=== PATIENT | male | born 1995 | race Caucasian/White ===

== ENCOUNTER 2017-02-14 10:20 | Emergency (ER) | payer OTHER, MEDICAID | END 2017-02-14 10:29 | disposition left against medical advice (07) | LOC: UCCORT 10:20 | DX: R11.2 Nausea with vomiting, unspecified (principal); R10.9 Unspecified abdominal pain; Z53.21 Procedure and treatment not carried out due to patient leaving prior to being seen by health care provider ==

== ENCOUNTER 2018-03-26 19:09 | Emergency (ER) | payer MEDICAID, OTHER ==
[2018-03-26 19:57] VITALS: BP 137/66
[2018-03-26] MEDS ORDERED: HYDROcodone/ACETAMIN 5-325 MG* 1 TAB PO ONE (20:11)
--- NOTE | 2018-03-26 20:12 | UC ---
[facility] HPI - HPI Summary HPI Summary: patient had his 3 bottom back right lower teeth removed on the 6th---Patient has continue pain that is not well managed with Advil. taking his Keflex as prescribed---no evidence of infection - History of Current Complaint Chief Complaint: UCGeneralIllness Stated Complaint: ORAL COMPLAINT Time Seen by Provider: 03/26/18 20:01 Hx Obtained From: Patient Onset/Duration: Gradual Onset, Lasting Days Pain Intensity: 7 Pain Scale Used: 0-10 Numeric Aggravating Factor(s): Nothing Alleviating Factor(s): Nothing - Allergies/Home Medications Allergies/Adverse Reactions: Allergies Allergy/AdvReac Type Severity Reaction Status Date / Time Penicillins Allergy Hives Verified 03/26/18 19:50 PMH/Surg Hx/FS Hx/Imm Hx Previously Healthy: Yes - Surgical History Surgical History: Yes Surgery Procedure, Year, and Place: RIGHT hand sx - Family History Known Family History: Positive: None - Social History Occupation: Employed Full-time Lives: With Family Alcohol Use: None Alcohol Amount: 5 BEERS/ WEEK Substance Use Type: None Substance Use Comment - Amount & Last Used: 1-1/2 POT DAILY Smoking Status (MU): Heavy Every Day Tobacco Smoker Type: eCigarettes Amount Used/How Often: 1/2 PPD X 7 YEARS When Did the Patient Quit Smoking/Using Tobacco: quit smoking-vaping now Review of Systems Constitutional: Negative - right lower jaw Skin: Negative Eyes: Negative ENT: Dental Pain Respiratory: Negative Cardiovascular: Negative Gastrointestinal: Negative Genitourinary: Negative Motor: Negative Neurovascular: Negative Musculoskeletal: Negative Neurological: Negative Psychological: Negative Is Patient Immunocompromised?: No All Other Systems Reviewed And Are Negative: Yes Physical Exam Triage Information Reviewed: Yes Appearance: Well-Appearing, Well-Nourished, Pain Distress Vital Signs: Initial Vital Signs Temp 98.2 F 03/26/18 19:52 Pulse 70 03/26/18 19:52 Resp 18 03/26/18 19:52 BP 137/66 03/26/18 19:52 Pulse Ox 99 03/26/18 19:52 Vital Signs Reviewed: Yes Eye Exam: Normal Eyes: Positive: Conjunctiva Clear ENT Exam: Normal ENT: Positive: Normal ENT inspection, Hearing grossly normal. Negative: Trismus , Muffled voice, Hoarse voice Dental Exam: Normal Neck exam: Normal Neck: Positive: Supple, Nontender Respiratory Exam: Normal Respiratory: Positive: Chest non-tender, No respiratory distress, No accessory muscle use Cardiovascular Exam: Normal Cardiovascular: Positive: RRR, Pulses Normal, Brisk Capillary Refill Musculoskeletal Exam: Normal Musculoskeletal: Positive: Strength Intact, ROM Intact, No Edema Neurological Exam: Normal Neurological: Positive: Alert, Muscle Tone Normal Psychological Exam: Normal Skin Exam: Normal Dental Complaint Course/Dx - Course Course Of Treatment: hydrocodone, advil follow with dentist, warm compress and salt water rinse - Differential Dx/Diagnosis Provider Diagnoses: right lower jaw post extraction dental pain Discharge - Sign-Out/Discharge Documenting (check all that apply): Discharge/Admit/Transfer - Discharge Plan Condition: Stable Disposition: HOME Prescriptions: Hydrocodone/Acetaminophen [Hydrocodone-Acetamin 5-325 mg] 1 each PO QID PRN #6 tablet MDD 4 PRN Reason: pain Patient Education Materials: Ibuprofen (By mouth) Referrals: No Primary Care Phys,NOPCP [Primary Care Provider] - Additional Instructions: Follow with Your dentist on Tuesday. - Billing Disposition and Condition Condition: STABLE Disposition: Home
== END 2018-03-26 20:20 | disposition home or self-care (01) ==
LOC: UCCORT 19:09
DX: K08.89 Other specified disorders of teeth and supporting structures (principal); Z98.890 Other specified postprocedural states; Z88.5 Allergy status to narcotic agent
CPT/HCPCS: 99212; G0463

== ENCOUNTER 2018-12-28 14:37 | Emergency (ER) | payer OTHER ==
[2018-12-28 15:27] VITALS: BP 126/60
--- NOTE | 2018-12-28 17:05 | UC ---
Throat Pain/Nasal [place] HPI - HPI Summary HPI Summary: 23-year-old male presents with onset of sore throat this morning. Associated with some general malaise and swollen tender lymph nodes. Denies fever, chills , nasal congestion, runny nose, dysphagia, cough, chest pain, shortness of breath, abdominal pain, nausea, or vomiting. - History of Current Complaint Chief Complaint: UCGeneralIllness Stated Complaint: SORE THROAT Time Seen by Provider: 12/28/18 16:46 Hx Obtained From: Patient Pain Intensity: 7 - Allergies/Home Medications Allergies/Adverse Reactions: Allergies Allergy/AdvReac Type Severity Reaction Status Date / Time Penicillins Allergy Hives Verified 06/26/18 16:24 PMH/Surg Hx/FS Hx/Imm Hx Previously Healthy: Yes - Denies significant PMH - Surgical History Surgical History: Yes Surgery Procedure, Year, and Place: RIGHT hand sx - Family History Known Family History: Positive: None - Social History Occupation: Employed Full-time Lives: Alone Alcohol Use: Rare Alcohol Amount: 5 BEERS/ WEEK Substance Use Type: None Substance Use Comment - Amount & Last Used: 1-1/2 POT DAILY Smoking Status (MU): Former Smoker Type: eCigarettes Amount Used/How Often: 1/2 PPD X 7 YEARS When Did the Patient Quit Smoking/Using Tobacco: quit smoking-vaping now Review of Systems All Other Systems Reviewed And Are Negative: Yes Constitutional: Negative: Fever, Chills Skin: Negative: Rash Eyes: Negative: Drainage, Eye Redness ENT: Positive: Sore Throat. Negative: Ear Ache, Nasal Discharge, Sinus Congestion, Sinus Pain/Tenderness Respiratory: Negative: Shortness Of Breath, Cough Cardiovascular: Negative: Palpitations, Chest Pain Gastrointestinal: Negative: Abdominal Pain, Vomiting, Nausea Genitourinary: Positive: Negative Musculoskeletal: Positive: Negative Neurological: Positive: Negative Is Patient Immunocompromised?: No Physical Exam - Summary Physical Exam Summary: GENERAL APPEARANCE: Well developed, well nourished, alert and cooperative, and appears to be in no acute distress. EYES: Conjunctiva clear. No drainage. Vision is grossly intact. EARS: External auditory canals with large amount of soft cerumen. Tympanic membranes partially obscured by the cerumen but what is visible are opaque without erythema. Hearing grossly intact. NOSE: No nasal congestion or discharge. THROAT: Pharyngeal erythema. Tonsils 2+ with exudate. Malodorous breath. Uvula midline. NECK: Neck supple. Tender, swollen anterior cervical lymph nodes. CARDIAC: Normal S1 and S2. No S3, S4 or murmurs. Rhythm is regular. There is no peripheral edema, cyanosis or pallor. Extremities are warm and well perfused. Capillary refill is less than 2 seconds. Peripheral pulses intact. LUNGS: Clear to auscultation without rales, rhonchi, wheezing or diminished breath sounds. ABDOMEN: Positive bowel sounds. Soft, nondistended, nontender. No guarding or rebound. No masses or hepatosplenomegally. MUSKULOSKELETAL: ROM intact to all extremities. No joint erythema or tenderness. Normal muscular development. Normal gait. SKIN: Skin normal color, texture and turgor with no lesions or eruptions. Triage Information Reviewed: Yes Vital Signs: Initial Vital Signs Temp 99.6 F 12/28/18 15:25 Pulse 99 12/28/18 15:25 Resp 16 12/28/18 15:25 BP 126/60 12/28/18 15:25 Pulse Ox 99 12/28/18 15:25 Vital Signs Reviewed: Yes Throat Pain/Nasal Course/Dx - Course Course Of Treatment: 23-year-old male presents with onset of sore throat this morning. Associated with some general malaise and swollen tender lymph nodes. Denies fever, chills , nasal congestion, runny nose, dysphagia, cough, chest pain, shortness of breath, abdominal pain, nausea, or vomiting. Afebrile. Vital signs stable. Exam reveals a young adult male in no acute distress with pharyngeal erythema, 2 + tonsils with exudate, malodorous breath, swollen, tender anterior cervical lymph nodes, and otherwise unremarkable exam. Patient's rapid strep test was negative however based on his presentation I will treat him for presumptive strep throat with cephalexin 500 mg twice a day 10 days as well as symptomatic treatment. He is to follow-up with his primary care provider in 7 days if symptoms do not improve. Anticipatory guidance and warning symptoms were reviewed with the patient. Verbalizes understanding and agrees with plan of care. - Differential Dx/Diagnosis Differential Diagnosis/HQI/PQRI: Mononucleosis, Pharyngitis, Sinusitis, Tonsillitis, URI Provider Diagnosis: Strep throat Discharge - Sign-Out/Discharge Documenting (check all that apply): Patient Departure All imaging exams completed and their final reports reviewed: No Studies - Discharge Plan Condition: Stable Disposition: HOME Prescriptions: cephALEXin [Keflex] 500 mg PO BID 10 Days #20 capsule Patient Education Materials: Strep Throat (ED) Referrals: Maya Saenz PA [Primary Care Provider] - 7 Days (If no improvement in symptoms.) Additional Instructions: Your rapid strep test in the clinic today was positive. We will start you on an antibiotic to treat the infection. Start cephalexin 1 cap twice a day for 10 days. Be sure to complete the entire course even if you are feeling better. After you have been on antibiotics for 3 days, throw out your toothbrush and replace with a new one to prevent reinfection. Drink plenty of fluids to avoid dehydration especially if you are running any fever. Use salt water gargles several times a day. Take over the counter acetaminophen (Tylenol) or ibuprofen (Advil, Motrin) according to directions as needed for pain or fever. You may also use Chloraseptic spray or Cepacol lonzenges according to directions which contain a numbing medication and can provide some temporary relief from your sore throat. Return here or follow up with your primary care provider in 7 days if symptoms do not improve. Seek immediate medical attention in the emergency room if you have fever greater than 100.5 F despite taking acetaminophen or ibuprofen, are unable to swallow or develop drooling, are unable to open your mouth fully, are unable to eat or drink, have pain that is not relieved with over the counter pain medication, or have any difficulty breathing. - Billing Disposition and Condition Condition: STABLE Disposition: Home
== END 2018-12-28 17:35 | disposition home or self-care (01) ==
LOC: UCCORT 14:37
DX: J02.0 Streptococcal pharyngitis (principal); Z88.0 Allergy status to penicillin; Z87.891 Personal history of nicotine dependence
CPT/HCPCS: 87651; 99212; G0463